=== PATIENT | male | born 1975 | race Caucasian/White ===

== ENCOUNTER 2019-08-20 19:03 | Emergency (ER) | payer OTHER ==
[~2019-08-20] VITALS: Ht 185.4 cm; Wt 120.2 kg
[2019-08-20 19:03] VITALS: BP_SYST 202
[2019-08-20] MEDS ORDERED: hydrALAZINE HCL 20 MG/ML VIAL IVP ONE (19:15)
[2019-08-20] MEDS ORDERED: DEXTROSE 50% JECT 50 ML DISP.SYRIN IVP ONE (19:15)
[2019-08-20] MEDS ORDERED: NACL 0.9% 1,000 ML IV ONE (19:15)
[2019-08-20] MEDS ORDERED: DEXTROSE 50% JECT 50 ML DISP.SYRIN ONE (19:23)
[2019-08-20] MEDS ORDERED: magnesium protein PO (19:34)
[2019-08-20] MEDS ORDERED: PRO40 PO (19:34)
[2019-08-20] MEDS ORDERED: CEL250 PO (19:34)
[2019-08-20] MEDS ORDERED: CLOP75TA32 PO (19:34)
[2019-08-20] MEDS ORDERED: TAMS-11 PO (19:34)
[2019-08-20] MEDS ORDERED: DOCU-144 PO (19:34)
[2019-08-20] MEDS ORDERED: CARV25TA55 PO (19:34)
[2019-08-20] MEDS ORDERED: sulfameth PO (19:34)
[2019-08-20] MEDS ORDERED: SSNPH SQ (19:34)
[2019-08-20] MEDS ORDERED: LIP40 PO (19:34)
[2019-08-20] MEDS ORDERED: PRED5TAB PO (19:34)
[2019-08-20] MEDS ORDERED: ASPI-1153 PO (19:34)
[2019-08-20] MEDS ORDERED: CINA30TA3 PO (19:34)
[2019-08-20] MEDS ORDERED: ACET325C6 PO (19:34)
[2019-08-20 19:45] LABS: HEMOGLOBIN 16.2 g/dL (14.0-18.0); WHITE BLOOD COUNT (AUTO) 3.1 K/uL (4.8-10.8)
[2019-08-20 19:52] LABS: CALCIUM 9.7 mg/dL (8.4-11.0); CREATININE 1.35 mg/dL (0.55-1.30); POTASSIUM 4.1 mmol/L (3.5-5.1)
[2019-08-20 19:54] LABS: HEMATOCRIT 49.8 % (36-54); MEAN CORPUSCULAR HEMOGLOBIN 27 pg (27-31); MEAN CORPUSCULAR HGB CONC 33 % (32-36); MEAN CORPUSCULAR VOLUME 83 fL (79.0-98.0); PLATELET COUNT (AUTO) 119 K/uL (130-430); RED BLOOD CELL COUNT(AUTO) 5.97 MIL/uL (4.2-6.2); RED CELL DISTRIBUTION WIDTH 14.9 % (9.0-15.0)
[2019-08-20 19:57] LABS: INR 1.1 (0.80-1.20); PROTHROMBIN TIME 11.1 SECS (9.5-12.5)
[2019-08-20 19:58] LABS: ALBUMIN 4.1 g/dL (3.4-4.8); TOTAL BILIRUBIN 0.8 mg/dL (0.0-1.0)
[2019-08-20 20:13] LABS: BILIRUBIN,URINE NEGATIVE (NEGATIVE); BLOOD, URINE 1+ (NEGATIVE); CLARITY/URINE CLEAR (CLEAR); COLOR,URINE YELLOW (YELLOW); GLUCOSE,URINE 1+ (NEGATIVE); KETONES,URINE NEGATIVE (NEGATIVE); LEUKOCYTE ESTERASE ,URINE NEGATIVE (NEGATIVE); NITRITE, URINE NEGATIVE (NEGATIVE); PH,URINE 5.5 (5.0-8.0); PROTEIN URINE 1+ (NEGATIVE); UROBILINOGEN,URINE 0.2 (0.2-1.0)
[2019-08-20 20:15] LABS: BAND % (MANUAL) 4 % (0-6); BASOPHILS % (MANUAL) 0 % (0-2); EOSINOPHILS % (MANUAL) 3 % (0-7); LYMPHOCYTES % (MANUAL) 29 % (20-46); MONOCYTES % (MANUAL) 22 % (0-11)
[2019-08-20 20:21] LABS: BACTERIA,URINE FEW /HPF (None Seen); WBC,URINE 0-3 /HPF (0-3)
[2019-08-20 20:39] VITALS: BP_SYST 159
== END 2019-08-20 20:38 | disposition home or self-care (01) ==
LOC: SED 19:03
DX: E11.65 Type 2 diabetes mellitus with hyperglycemia (principal); E11.29 Type 2 diabetes mellitus with other diabetic kidney complication; R42 Dizziness and giddiness; R41.0 Disorientation, unspecified; N28.9 Disorder of kidney and ureter, unspecified; Z79.899 Other long term (current) drug therapy; Z79.82 Long term (current) use of aspirin
CPT/HCPCS: 36415; 71045; 80053; 81000; 82962; 83605; 84484; 85007; 85027; 85610; 85730; 87040; 87086; 93005; 96361; 96374; 96375; 99285; J0360; J7030